=== PATIENT | female | born 1965 | race Asian ===

== ENCOUNTER 2017-01-22 15:41 | Emergency (ER) | payer SELFPAY ==
[2017-01-22 15:54] VITALS: BP 151/90; PULSE 90; RESP 18; TEMP 98.1; O2SAT 96
--- NOTE | 2017-01-22 16:01 | EDPHY ---
H & P Time Seen by Provider: 01/22/17 15:52 HPI/ROS: CHIEF COMPLAINT: Difficulty sleeping HISTORY OF PRESENT ILLNESS: The patient is a 52-year-old female presenting with difficulty sleeping. The patient arrived 4 days ago from [place] to visit her son. For the past 3 days the patient was only darius to sleep 10 hours total. Before bed she experiences palpitations that make her feel anxious. This subsequently prevents her from sleeping. Patient also is concerned about being so far from home. She denies chest pain, shortness of breath, or URI symptoms. REVIEW OF SYSTEMS: A comprehensive 10 point review of systems is otherwise negative aside from elements mentioned in the history of present illness. Past Medical/Surgical History: Denies. Social History: Here from [place], visiting son at . Smoking Status: Never smoked Physical Exam: General Appearance: Alert, pleasant Eyes: Pupils equal and round, no conjunctival pallor or injection ENT, Mouth: Mucous membranes moist Neck: Normal inspection Respiratory: Lungs are clear to auscultation Cardiovascular: Regular rate and rhythm Gastrointestinal: Abdomen is soft and non-tender Neurological: A&O, nonfocal, normal gait Skin: Warm and dry, no rash Extremities: Nontender, no pedal edema Psychiatric: Mood and affect normal Constitutional: Initial Vital Signs Temperature (C) 36.7 C 01/22/17 15:45 Heart Rate 90 01/22/17 15:45 Respiratory Rate 18 01/22/17 15:45 Blood Pressure 151/90 H 01/22/17 15:45 O2 Sat (%) 96 01/22/17 15:45 O2 Delivery Mode Room Air Allergies/Adverse Reactions: No Known Allergies Allergy (Unverified 01/22/17 15:45) Home Medications: Medication Instructions Recorded Amlodipine Besylate 01/22/17 Zolpidem Tartrate [Ambien 5MG (*)] 5 mg PO HS PRN #10 tab 01/22/17 Medical Decision Making - Diagnostics EKG Interpretation: EKG interpreted by me reveals normal sinus rhythm, rate 82, no ST or T segment changes. ED Course/Re-evaluation: Patient visiting from [place] presents with insomnia. Patient arrived to [place] 4 days ago. She has only been able to get 10 hours of sleep within the past 3 days. Patient reports palpitations that occur at night causing her anxiety and difficulty sleeping. Patient has a normal exam. Plan to discharge patient home with Ambien. Departure - Departure Disposition: Home, Routine, Self-Care Clinical Impression: Insomnia Qualifiers: Insomnia type: primary Qualified Code(s): F51.01 - Primary insomnia Condition: Good Instructions: Insomnia (ED) Additional Instructions: Take the Ambien as directed before bed. Followup with your primary care physician when you return home. You have been referred to a primary care physician below, please call to arrange a followup appointment if needed. Referrals: Elmer Archer MD [Medical Doctor] - As per Instructions Prescriptions: Zolpidem Tartrate [Ambien 5MG (*)] 5 mg PO HS PRN #10 tab PRN Reason: insomnia Report Scribed for: Kamilah Cedeño Report Scribed by: Carolina Maxwell Date of Report: 01/22/17 Time of Report: 16:02 Physician Review and Approval Statement: 01/22/17 16:02 Portions of this note were transcribed by a medical technical writer. I personally performed the history, physical exam, and medical decision-making; and confirmed the accuracy of the information in the transcribed note.
--- NOTE | 2017-01-22 16:03 | CPEKG ---
Heart Rate: 82 RR Interval: 732 P-R Interval: 152 QRSD Interval: 82 QT Interval: 400 QTC Interval: 468 P [place]: 73 QRS [place]: 62 T Wave [place]: 46 EKG Severity - NORMAL ECG - EKG Impression: SINUS RHYTHM Electronically Signed By: Kamilah Cedeño 22-Jan-2017 22:35:58
== END 2017-01-22 16:20 | disposition home or self-care (01) ==
DX: F51.01 Primary insomnia (principal)

== ENCOUNTER 2017-01-26 22:23 | Emergency (ER) | payer SELFPAY ==
[2017-01-26 22:37] VITALS: RESP 16; O2SAT 95
[2017-01-26] MEDS ORDERED: NS 1,000 ML IV ONE (22:41)
--- NOTE | 2017-01-26 22:41 | EDPHY ---
H & P Stated Complaint: increased vaginal bleeding HPI/ROS: HPI CHIEF COMPLAINT: Vaginal bleeding HISTORY OF PRESENT ILLNESS: This patient very pleasant 52-year-old female, Serbian speaking only, son at bedside translates, she presents emergency room with her son who is a [employer] student. She is visiting her son from [place]. She started her menstrual period on the 17. It lasted a normal 4 -5 days. It stops for 4-5 days and then returned. For the past 48 hours she has had increasing vaginal bleeding. Some mild lower cramping. She states she used 3 pads over the past 24 hours. She became concerned about how much she is bleeding decided come to the emergency room. She denies being . She denies significant abdominal pain or pelvic pain. Denies vomiting. Past Medical History: No significant medical history except for hypertension Past Surgical History: No recent surgery Social History: Denies daily use of drugs alcohol tobacco products. Family History: Noncontributory ROS REVIEW OF SYSTEMS: A comprehensive 10 point review of systems is otherwise negative aside from elements mentioned in the history of present illness. Exam Constitutional appears well nontoxic, triage nursing summary reviewed, vital signs reviewed, awake/alert. Non tachycardic and not hypotensive. Eyes normal conjunctivae and sclera, EOMI, PERRLA. HENT normal inspection, atraumatic, moist mucus membranes, no epistaxis, neck supple/ no meningismus, no raccoon eyes. Respiratory clear to auscultation bilaterally, normal breath sounds, no respiratory distress, no wheezing. Cardiovascular rate normal, regular rhythm, no murmur, no edema, distal pulses normal. Gastrointestinal soft, non-tender, no rebound, no guarding, normal bowel sounds, no distension, no pulsatile mass. Genitourinary no CVA tenderness. Musculoskeletal no midline vertebral tenderness, full range of motion, no calf swelling, no tenderness of extremities, no meningismus, good pulses, neurovascularly intact. Skin pink, warm, & dry, no rash, skin atraumatic. Neurologic awake, alert and oriented x 3, AAOx3, moves all 4 extremities equally, motor intact, sensory intact, CN II-XII intact, normal cerebellar, normal vision, normal speech. Psychiatric normal mood/affect. Heme/Lymph/Immune no lymphadenopathy. Differential Diagnosis: Includes but is not limited to in a particular order, dysfunctional uterine bleeding, ectopic , , miscarriage, blood loss anemia Medical Decision Making: Plan for this patient IV establishment check blood work CBC H&H, pelvic ultrasound. Re-evaluate. Re-evaluation: Ultrasound of the pelvis ultrasound The results of the study are shows multiple fibroids. Otherwise unremarkable pelvis ultrasound. I discussed the results of this study with the radiologist Dr. Rinaldi [id number]: I DID RE-EVALUATE THIS PATIENT THIS TIME SHE IS RESTING COMFORTABLY. NO SIGNIFICANT VAGINAL BLEEDING. Signs are stable. H&H are stable. When her ultrasound report with son and mom. Most likely cause of vaginal bleeding is uterine fibroids. Will refer to OBGYN. She understands return emergency room if develops significant severe vaginal bleeding. Source: Patient - Personal History LMP (Females 10-55): Now Current Tetanus Diphtheria and Acellular Pertussis (TDAP): Unsure - Medical/Surgical History Hx Asthma: No Hx Chronic Respiratory Disease: No Hx Diabetes: No Hx Cardiac Disease: No Hx Renal Disease: No Hx Cirrhosis: No Hx Alcoholism: No Hx HIV/AIDS: No Hx Splenectomy or Spleen Trauma: No Other PMH: htn, surgery for curelatte - Social History Smoking Status: Never smoked Constitutional: Initial Vital Signs Temperature (C) 37.4 C 01/26/17 22:28 Heart Rate 88 01/26/17 22:28 Respiratory Rate 16 01/26/17 22:28 Blood Pressure 150/92 H 01/26/17 22:28 O2 Sat (%) 95 01/26/17 22:28 O2 Delivery Mode Room Air Allergies/Adverse Reactions: No Known Allergies Allergy (Unverified 01/22/17 15:45) Home Medications: Medication Instructions Recorded Amlodipine Besylate 01/22/17 Janna Ladd 01/26/17 Medical Decision Making - Diagnostics Imaging Results: Imaging Impressions Pelvic/Renal Ultrasound 01/26/17 22:41 Impression: Leiomyomatous uterus. One at the lower uterine segment appears to extensive mucosal. Results called and discussed with Pedro Ricketts MD at 01/26/2017 23:48. - Data Points Laboratory Results: Laboratory Results 01/26/17 22:15 01/26/17 01/26/17 01/26/17 22:15 22:15 22:15 WBC 6.83 10^3/uL 10^3/uL (3.80-9.50) RBC 5.04 10^6/uL 10^6/uL (4.18-5.33) Hgb 14.9 g/dL g/dL (12.6-16.3) Hct 43.8 % % (38.0-47.0) MCV 86.9 fL fL (81.5-99.8) MCH 29.6 pg pg (27.9-34.1) MCHC 34.0 g/dL g/dL (32.4-36.7) RDW 12.4 % % (11.5-15.2) Plt Count 292 10^3/uL 10^3/uL (150-400) MPV 9.9 fL fL (8.7-11.7) Neut % (Auto) 70.3 % % (39.3-74.2) Lymph % (Auto) 18.9 % % (15.0-45.0) Teller % (Auto) 8.1 % % (4.5-13.0) Eos % (Auto) 1.6 % % (0.6-7.6) Baso % (Auto) 0.7 % % (0.3-1.7) Nucleat RBC Rel Count 0.0 % % (0.0-0.2) Absolute Neuts (auto) 4.80 10^3/uL 10^3/uL (1.70-6.50) Absolute Lymphs (auto) 1.29 10^3/uL 10^3/uL (1.00-3.00) Absolute Monos (auto) 0.55 10^3/uL 10^3/uL (0.30-0.80) Absolute Eos (auto) 0.11 10^3/uL 10^3/uL (0.03-0.40) Absolute Basos (auto) 0.05 10^3/uL 10^3/uL (0.02-0.10) Absolute Nucleated RBC 0.00 10^3/uL 10^3/uL (0-0.01) Immature Gran % 0.4 % % (0.0-1.1) Immature Gran # 0.03 10^3/uL 10^3/uL (0.00-0.10) Beta HCG, Qual NEGATIVE Urine Color YELLOW Urine Appearance HAZY Urine pH 6.0 (5.0-7.5) Ur Specific Lee 1.020 (1.002-1.030) Urine Protein 2+ H (NEGATIVE) Urine Ketones NEGATIVE (NEGATIVE) Urine Blood 3+ H (NEGATIVE) Urine Nitrate NEGATIVE (NEGATIVE) Urine Bilirubin NEGATIVE (NEGATIVE) Urine Urobilinogen NEGATIVE EU EU (0.2-1.0) Ur Leukocyte Esterase NEGATIVE (NEGATIVE) Urine RBC 50-182 /hpf H /hpf (0-3) Urine WBC 50-182 /hpf H /hpf (0-3) Ur Epithelial Cells TRACE /lpf /lpf (NONE-1+) Urine Bacteria TRACE /hpf H /hpf (NONE SEEN) Urine Mucus 4+ /lpf H /lpf (NONE-1+) Urine Glucose NEGATIVE (NEGATIVE) Medications Given: Discontinued Medications Sodium Chloride (Ns) 1,000 mls @ 0 mls/hr IV ONCE ONE; Wide Open PRN Reason: Protocol Stop: 01/26/17 22:42 Last Admin: 01/26/17 23:06 Dose: Not Given Departure - Departure Disposition: Home, Routine, Self-Care Clinical Impression: DUB (dysfunctional uterine bleeding) Fibroids Qualifiers: Uterine leiomyoma location: intramural Qualified Code(s): D25.1 - Intramural leiomyoma of uterus Condition: Good Instructions: Uterine Fibroids (ED), Dysfunctional Uterine Bleeding (ED) Additional Instructions: 1.Return emergency his severe pain or severe vaginal bleeding. 2. Please follow up with OBGYN. Referrals: NONE *PRIMARY CARE P,. [Primary Care Provider] - As per Instructions Shoshana Avila DO [Doctor of Osteopathy] - As per Instructions
[2017-01-26 23:08] LABS: % IMMATURE GRANULYOCYTES 0.4 % (0.0-1.1); ABSOLUTE IMMATURE GRANULOCYTES 0.03 10^3/uL (0.00-0.10); ADD DIFF? NO; ADD MORPH? NO; ADD SCAN? NO; ATYPICAL LYMPHOCYTE FLAG 30 (0-99); FRAGMENT RBC FLAG 0 (0-99); HEMATOCRIT 43.8 % (38.0-47.0); HEMOGLOBIN 14.9 g/dL (12.6-16.3); LEFT SHIFT FLG 0 (0-99); LIPEMIA HEMOLYSIS FLAG 90 (0-99); MEAN CELL HEMOGLOBIN 29.6 pg (27.9-34.1); MEAN CELL VOLUME 86.9 fL (81.5-99.8); MEAN PLATELET VOLUME 9.9 fL (8.7-11.7); PLATELET CLUMPS FLAG 0 (0-99); PLATELET COUNT 292 10^3/uL (150-400); RED BLOOD CELL COUNT 5.04 10^6/uL (4.18-5.33); RED CELL DISTRIBUTION WIDTH 12.4 % (11.5-15.2)
[2017-01-26 23:18] LABS: COLOR YELLOW; LEUKOCYTE ESTERASE,URINE NEGATIVE (NEGATIVE); NITRITE,URINE NEGATIVE (NEGATIVE)
[2017-01-26 23:28] LABS: BACTERIA TRACE /hpf (NONE SEEN); MUCUS 4+ /lpf (NONE-1+); RBC,URINE 50-182 /hpf (0-3); WBC,URINE 50-182 /hpf (0-3)
[2017-01-27 01:50] VITALS: BP 148/88; PULSE 80; TEMP 97.7
== END 2017-01-27 01:50 | disposition home or self-care (01) ==
DX: N93.8 Other specified abnormal uterine and vaginal bleeding (principal); D25.1 Intramural leiomyoma of uterus; I10 Essential (primary) hypertension